=== PATIENT | male | born 1960 | race Caucasian/White ===

== ENCOUNTER 2023-07-31 11:28 | Inpatient (IN) | payer BC ==
[~2023-07-31] VITALS: Ht 182.9 cm; Wt 127.5 kg
[2023-07-31] VITALS (7 sets, daily range): BP systolic 136–150; BP diastolic 79–83; TEMP 97.5–97.9; O2SAT 94–96
[~2023-07-31 11:28] MED LIST: ACETAMINOPHEN 1000MG 100ML IV BAG As Ordered ONE; BAYE81TA10 PO; CALC1CAP42 PO; CIDA500T2 PO; CO Q1CAP2 PO; LIDOCAINE 2% 100MG/5ML SDV (FOR ANES.) As Ordered ONE; LIDOCAINE 2% INJ 100 MG/5 ML SYRINGE As Ordered ONE; LISI20TA37 PO; LOVA20TA2 PO; MAGN400C2 PO; NATU1TAB5 PO; ONDANSETRON 4MG 2ML VIAL As Ordered ONE; RA T500C2 PO; ROCURONIUM BROMIDE 50MG/5ML VIAL As Ordered ONE; SILD100T PO; SUGAMMADEX SODIUM 500 MG/5 ML VIAL (BRIDION) As Ordered ONE; UBID30CA PO; VITA100065 PO; dexmedeTOMIDine (4MCG/ML)200MCG/50ML BTL (PRECEDEX) As Ordered ONE; propofoL 200 MG/20 ML VIAL As Ordered ONE
[2023-07-31] MEDS ORDERED: LIDOCAINE 1% SDV 30ML VIAL As Ordered ONE (11:30)
[2023-07-31] MEDS ORDERED: LR 1,000 ML IV SCH ×2 (11:40→17:10)
[2023-07-31] MEDS ORDERED: MIDAZOLAM INJ 2MG/2ML VIAL As Ordered ONE (11:46)
[2023-07-31] MEDS ORDERED: fentaNYL 250 MCG/5 ML INJECTION As Ordered ONE (11:46)
[2023-07-31] MEDS ORDERED: HEPARIN SOD (PORCINE) 5000UNITS/ML 1ML VIAL/SYRINGE SQ ONE (12:00)
[2023-07-31] MEDS ORDERED: PERCOCET 5MG/325MG TAB PO PRN (12:00)
[2023-07-31] MEDS ORDERED: ACETAMINOPHEN TAB 650MG DOSE (2X325MG) PO PRN (12:00)
[2023-07-31] MEDS ORDERED: ceFAZolin SOD 2 GM in IV 1 EA IV ONE (12:00)
[2023-07-31] MEDS ORDERED: ONDANSETRON 4MG 2ML VIAL IV PRN ×2 (12:00→17:10)
[2023-07-31] MEDS ORDERED: ceFAZolin SOD 1 GM in D5W MINI-BAG PLUS 50 ML IV ONE (12:40)
[2023-07-31] MEDS ORDERED: ROCURONIUM BROMIDE 50MG/5ML VIAL As Ordered ONE ×3 (13:14→15:42)
[2023-07-31] MEDS ORDERED: ATROPINE SULF 0.4 MG/ML 1ML VIAL As Ordered ONE (13:17)
[2023-07-31] MEDS ORDERED: GLYCOPYRROLATE INJ 0.2 MG/ML 2 ML VIAL As Ordered ONE (13:17)
[2023-07-31] MEDS ORDERED: ceFAZolin 2 GM/D5W 50 ML IV BAG As Ordered ONE (16:38)
[2023-07-31] MEDS ORDERED: fentaNYL 100 MCG/2 ML INJECTION IV PRN (17:10)
[2023-07-31] MEDS ORDERED: ePHEDrine SULFATE 25 MG/5 ML(5MG/ML) SYRINGE As Ordered ONE (17:16)
[2023-07-31] MEDS: HYDROMORPHONE HCL 0.5 MG/ 0.5 ML SYRINGE IV PRN ×4 (17:41→18:01)
[2023-07-31] MEDS: oxyCODONE 5MG TAB PO PRN ×2 (17:42→18:12)
[2023-07-31] MEDS: NS 1,000 ML IV SCH (18:05)
[2023-07-31 18:23] LABS: HEMATOCRIT 42.5 % (42.0-52.0); HEMOGLOBIN 14.6 g/dl (13.5-17.5); MEAN CORPUSCULAR HEMOGLOBIN 31.2 pg (27.0-33.0); MEAN CORPUSCULAR HGB CONC 34.4 g/dl (32.0-36.5); MEAN CORPUSCULAR VOLUME 90.8 fl (80.0-96.0); PLATELET COUNT, AUTOMATED 235 10^3/uL (150-450); RED BLOOD COUNT 4.68 10^6/uL (4.30-6.10); WHITE BLOOD COUNT 13.4 10^3/uL (4.0-10.0)
[2023-07-31 18:42] LABS: BLOOD UREA NITROGEN 20 MG/DL (9-23); CALCIUM LEVEL 8.6 MG/DL (8.3-10.6); CARBON DIOXIDE LEVEL 23 MMOL/L (20-31); CHLORIDE LEVEL 107 MMOL/L (98-107); CREATININE FOR GFR 0.96 MG/DL (0.70-1.30); GLOMERULAR FILTRATION RATE > 60.0 (>49); GLUCOSE, FASTING 176 MG/DL (74-106); SODIUM LEVEL 138 MMOL/L (136-145)
[2023-07-31] MEDS: ceFAZolin SOD 1 GM in D5W MINI-BAG PLUS 50 ML IV SCH (19:55)
[2023-07-31] MEDS: DOCUSATE SODIUM 100MG CAPSULE PO SCH (21:01)
[2023-07-31] MEDS: HEPARIN SOD (PORCINE) 5000UNITS/ML 1ML VIAL/SYRINGE SC SCH ×2 (21:01→21:03)
[2023-07-31] MEDS: PERCOCET 5MG/325MG TAB PO PRN (21:02)
[2023-08-01] MEDS: ceFAZolin SOD 1 GM in D5W MINI-BAG PLUS 50 ML IV SCH (03:40)
[2023-08-01 03:45] VITALS: BP 126/75; TEMP 97.7; O2SAT 97
[2023-08-01] MEDS: NS 1,000 ML IV SCH (04:57)
[2023-08-01] MEDS: HEPARIN SOD (PORCINE) 5000UNITS/ML 1ML VIAL/SYRINGE SC SCH ×2 (05:15→13:49)
[2023-08-01 05:53] LABS: HEMATOCRIT 40.7 % (42.0-52.0); HEMOGLOBIN 13.8 g/dl (13.5-17.5); MEAN CORPUSCULAR HEMOGLOBIN 30.8 pg (27.0-33.0); MEAN CORPUSCULAR HGB CONC 33.9 g/dl (32.0-36.5); MEAN CORPUSCULAR VOLUME 90.8 fl (80.0-96.0); PLATELET COUNT, AUTOMATED 237 10^3/uL (150-450); RED BLOOD COUNT 4.48 10^6/uL (4.30-6.10); WHITE BLOOD COUNT 12.4 10^3/uL (4.0-10.0)
[2023-08-01 06:15] LABS: BLOOD UREA NITROGEN 15 MG/DL (9-23); CALCIUM LEVEL 8.1 MG/DL (8.3-10.6); CARBON DIOXIDE LEVEL 27 MMOL/L (20-31); CHLORIDE LEVEL 102 MMOL/L (98-107); CREATININE FOR GFR 0.82 MG/DL (0.70-1.30); GLOMERULAR FILTRATION RATE > 60.0 (>49); GLUCOSE, FASTING 138 MG/DL (74-106); POTASSIUM SERUM 4.6 MMOL/L (3.5-5.1); SODIUM LEVEL 136 MMOL/L (136-145)
[2023-08-01 08:00] VITALS: BP_SYST 125; BP_SYST 149; BP_DIAS 74; BP_DIAS 77; TEMP 97; O2SAT 94; O2SAT 97
[2023-08-01] MEDS: PERCOCET 5MG/325MG TAB PO PRN ×2 (08:18→13:39)
[2023-08-01] MEDS: DOCUSATE SODIUM 100MG CAPSULE PO SCH (08:18)
[2023-08-01 08:20] VITALS: BP 149/77
[2023-08-01] MEDS ORDERED: PERCOCET PO (08:56)
[2023-08-01] MEDS ORDERED: CIPR-249 PO (08:56)
[2023-08-01] MEDS ORDERED: COLA100C5 PO (08:56)
[2023-08-01 11:45] VITALS: BP 126/68; TEMP 97.7; O2SAT 95
== END 2023-08-01 16:47 | disposition home or self-care (01) | DRG 484 ==
LOC: M OR 11:28 → M MSPAV 18:42
PROVIDERS: ADMIT Urology; ATTEND Urology
PROC: 8E0W4CZ Robotic Assisted Procedure of Trunk Region, Percutaneous Endoscopic Approach (ICD-10-PCS; 2023-07-31)
PROC: 0VT04ZZ Resection of Prostate, Percutaneous Endoscopic Approach (ICD-10-PCS; principal; 2023-07-31 12:45)
DX: C61 Malignant neoplasm of prostate (principal); I10 Essential (primary) hypertension; E78.00 Pure hypercholesterolemia, unspecified; Z79.82 Long term (current) use of aspirin; Z79.899 Other long term (current) drug therapy